=== PATIENT | male | born 1965 | race Caucasian/White ===

== ENCOUNTER 2021-02-26 14:07 | Inpatient (IN) | payer OTHER ==
[2021-02-26] MEDS ORDERED: ONDANSETRON *ODT* 4 MG TABLET SL PRN (16:12)
[2021-02-26] MEDS ORDERED: ACETAMINOPHEN 325 MG TABLET (FP) PO PRN ×2 (16:12)
[2021-02-26] MEDS ORDERED: MAGNESIUM CITRATE 300 ML BOTTLE PO PRN (16:12)
[2021-02-26] MEDS ORDERED: MAG HYDROX/AL HYDROX/SIMETH 30 ML UNIT-DOSE CUP PO PRN (16:12)
[2021-02-26] MEDS ORDERED: MENTHOL/PHENOL 1 EACH UD MM PRN (16:12)
[2021-02-26] MEDS ORDERED: chlordiazePOXIDE HCL 25 MG CAPSULE PO PRN (16:12)
[2021-02-26] MEDS ORDERED: METHOCARBAMOL 500 MG TABLET PO PRN (16:12)
[2021-02-26] MEDS ORDERED: MAGNESIUM HYDROX 2400MG/30ML ORAL SUSPENSION 30 ML CUP PO PRN (16:12)
[2021-02-26] MEDS ORDERED: BISMUTH SUBSALICYLATE 524 MG/30 ML PO PRN (16:12)
[2021-02-26] MEDS ORDERED: NICOTINE 10 MG CARTRIDGE (INHALER) IH PRN (16:12)
[2021-02-26] MEDS ORDERED: IBUPROFEN 400 MG TABLET (FP) PO PRN (16:12)
[2021-02-26 17:44] VITALS: BMI 24.9
[2021-02-26] MEDS: hydrOXYzine PAMOATE 25 MG CAPSULE (FP) PO SCH ×2 (19:03→22:25)
[2021-02-26] MEDS: chlordiazePOXIDE HCL 25 MG CAPSULE PO SCH ×2 (19:03→22:25)
[2021-02-26] MEDS: MELATONIN 5 MG TABLETS PO SCH (22:25)
[2021-02-26] MEDS: THIAMINE HCL 100 MG TABLET (FP) PO SCH (22:25)
[2021-02-27] MEDS: chlordiazePOXIDE HCL 25 MG CAPSULE PO SCH ×4 (05:10→22:12)
[2021-02-27] MEDS: hydrOXYzine PAMOATE 25 MG CAPSULE (FP) PO SCH ×5 (05:11→22:12)
[2021-02-27] MEDS: PRENATAL VITAMINS W/ FOLIC ACID TABLET (FP) PO SCH (10:34)
[2021-02-27 12:18] LABS: HEMATOCRIT 37.8 % (35.4-49); HEMOGLOBIN 13.1 GM/dL (11.7-16.9); MCH 33.7 pg (25.7-33.7); MCHC 34.7 g/dl (32.0-35.9); MEAN CELL VOLUME 97.3 fl (80-96); MEAN PLT VOLUME 7.3 fl (7.5-11.1); PLATELET COUNT 225 10^3/uL (134-434); RBC 3.88 M/mm3 (4.00-5.60); RDW 14.5 % (11.9-15.9); WHITE BLOOD COUNT 3.7 K/mm3 (4.0-10.0)
[2021-02-27 12:24] LABS: CALCIUM 8.8 mg/dL (8.5-10.1)
[2021-02-27 12:25] LABS: ALBUMIN 2.8 g/dl (3.4-5.0); BLOOD UREA NITROGEN 9.7 mg/dL (7-18)
[2021-02-27 12:28] LABS: CREATININE 0.7 mg/dL (0.55-1.3)
[2021-02-27 12:30] LABS: BILIRUBIN,TOTAL 1.1 mg/dL (0.2-1); TOT PROT 6.1 g/dl (6.4-8.2)
[2021-02-27] MEDS ORDERED: POTASSIUM CHLORIDE ORAL LIQUID 20 MEQ/15 ML PO ONE (12:46)
[2021-02-27] MEDS: MELATONIN 5 MG TABLETS PO SCH (22:12)
[2021-02-27] MEDS: THIAMINE HCL 100 MG TABLET (FP) PO SCH (22:12)
[2021-02-27] MEDS: POTASSIUM CHLORIDE ORAL LIQUID 20 MEQ/15 ML PO SCH (22:12)
[2021-02-28] MEDS: chlordiazePOXIDE HCL 25 MG CAPSULE PO SCH ×2 (05:16→10:30)
[2021-02-28] MEDS: hydrOXYzine PAMOATE 25 MG CAPSULE (FP) PO SCH ×2 (05:16→10:31)
[2021-02-28] MEDS: POTASSIUM CHLORIDE ORAL LIQUID 20 MEQ/15 ML PO SCH (10:29)
[2021-02-28 10:51] LABS: CALCIUM 8.9 mg/dL (8.5-10.1)
[2021-02-28 10:52] LABS: ALBUMIN 2.9 g/dl (3.4-5.0); BLOOD UREA NITROGEN 9.2 mg/dL (7-18)
[2021-02-28 10:55] LABS: CREATININE 0.7 mg/dL (0.55-1.3)
[2021-02-28 10:56] LABS: BILIRUBIN,TOTAL 0.5 mg/dL (0.2-1); TOT PROT 6.4 g/dl (6.4-8.2)
[2021-02-28 12:59] VITALS: BP 140/95; PULSE 94; TEMP 98
[2021-02-28] MEDS: PRENATAL VITAMINS W/ FOLIC ACID TABLET (FP) PO SCH (13:17)
[2021-03-01] MEDS ORDERED: chlordiazePOXIDE HCL 10 MG CAPSULE PO PRN
[2021-03-01] MEDS ORDERED: chlordiazePOXIDE HCL 10 MG CAPSULE PO SCH (05:00)
[2021-03-02] MEDS ORDERED: chlordiazePOXIDE HCL 10 MG CAPSULE PO SCH (05:00)
[2021-03-03] MEDS ORDERED: chlordiazePOXIDE HCL 10 MG CAPSULE PO ONE (05:00)
== END 2021-02-28 13:48 | disposition left against medical advice (07) | DRG 770 ==
LOC: YASAS 14:07 → Y3N 17:20
PROVIDERS: ADMIT Allergy & Immunology; ATTEND Allergy & Immunology
PROC: HZ2ZZZZ Detoxification Services for Substance Abuse Treatment (ICD-10-PCS; principal; 2021-02-26)
DX: F10.230 Alcohol dependence with withdrawal, uncomplicated (principal); F17.210 Nicotine dependence, cigarettes, uncomplicated; F25.9 Schizoaffective disorder, unspecified; F19.24 Other psychoactive substance dependence with psychoactive substance-induced mood disorder; I10 Essential (primary) hypertension; E87.6 Hypokalemia; Z91.018 Allergy to other foods; Z56.0 Unemployment, unspecified; Z59.00 Homelessness unspecified
CPT/HCPCS: 36415; 80053; 85027; 86780; C9803; U0003; U0005